=== PATIENT | female | born 1995 | race African-American/Black ===

== ENCOUNTER 2020-08-22 20:04 | Observation (INO) | payer OTHER, SELFPAY ==
[2020-08-22] VITALS (14 sets, daily range): BP systolic 124–153; BP diastolic 78–109; PULSE 74–102; RESP 16–62; TEMP 36.4; O2SAT 100
--- NOTE | ~2020-08-22 | US_ITS ---
EXAMINATION: US pelvic complete DATE: 08/23/2020 13:06 INDICATION: Suprapubic pain. TECHNIQUE: Multiple transabdominal sonographic images of the pelvis were obtained. COMPARISON: None. FINDINGS: The uterus measures 9.4 x 5.6 x 4.9 cm. There is no free fluid in the pelvis. The endometrial complex measures 12 mm in thickness. The right ovary measures 2.8 x 2.8 x 2.7 cm. The left ovary measures 2. 1 x 1.9 x 2.4 cm. There is normal vascular flow in the ovaries. IMPRESSION: 1. Normal pelvis. Reviewed, dictated and finalized at location [facility]. GY ADVISOR IMPRESSION: 1. Normal pelvis.
[2020-08-22 20:49] LABS: Basophils Percent Auto 0.4 % (0.2-1.2); Eosinophils Absolute Auto 0.1 K/mm3 (0-0.3); Eosinophils Percent Auto 1.5 % (0-4.4); Hematocrit 39.3 % (37.0-47.0); Hemoglobin 12.7 g/dL (12.0-15.0); Immature Granulocyte Absolute 0.01 K/mm3 (0.00-0.031); Immature Granulocyte Percent A 0.2 % (0-0.5); Lymphocytes Absolute Auto 2.28 K/mm3 (0.9-3.2); Lymphocytes Percent Auto 41.6 % (18.3-44.2); Mean Corpuscular HGB Conc 32.3 g/dl (32-36); Mean Corpuscular Volume 83.4 fl (80-100); Mean Platelet Volume 10.7 fl (7.4-10.4); Monocytes Absolute Auto 0.3 K/mm3 (0.1-0.6); Monocytes Percent Auto 5.5 % (2.6-8.5); Neutrophils Absolute Auto 2.8 K/mm3 (1.3-6.7); Neutrophils Percent Auto 50.8 % (45.5-73.1); Platelet Count Result 195 k/mm3 (150-375); Red Blood Count 4.71 M/mm3 (4.2-5.4); Red Cell Distribution Width 13.2 % (11.5-14.5); White Blood Count 5.5 K/mm3 (4.5-10.0)
[2020-08-22] MEDS: ONDANSETRON INJ 4 MG/2 ML VIAL IV PUSH (20:54)
[2020-08-22] MEDS: LORazepam INJ (*CRX) 2 MG/ML VIAL 1 MG IV PUSH ×2 (20:54→22:54)
[2020-08-22] MEDS: levETIRAcetam 1000MG/NACL100ML 1,000 MG/100 ML BAG 400 MG IVPB (20:54)
[2020-08-22 20:55] LABS: Add Urine Microscopic? NO; Appearance Urine Clear (Clear); Bacteria Urine Trace /hpf; Bilirubin Urine Negative (Negative); Blood Urine Negative (Negative); Color Urine Yellow (Yellow); Glucose Urine UA Negative (Negative); Ketones Urine Negative (Negative); Leukocyte Esterase Ur Negative LEU/UL (Negative); Mucus Urine Rare /lpf; Nitrate Urine Negative (Negative); Protein Urine Negative (Negative); RBC Urine 0-2 /hpf (0-2); Specific Grav Ur 1.019 (1.001-1.035); Squamous Epithelial Cell Urine Many /hpf (Few); Urobilinogen Urine Negative mg/dL (<2.0); WBC Urine 0-3 /hpf
[2020-08-22 21:01] LABS: Alanine Aminotransferase 13 U/L (4-35); Albumin Level 4.5 g/dL (3.5-5.1); Alkaline Phosphatase 100 U/L (38-126); Anion Gap 6 mmol/L (8-16); Aspartate Amino Transferase 26 U/L (14-36); Bilirubin,Total 0.5 mg/dL (0.2-1.3); Blood Urea Nitrogen 9 mg/dL (7-17); Calcium 9.2 mg/dL (8.4-10.2); Carbon Dioxide 25 mmol/L (22-30); Chloride 107 mmol/L (98-107); Estimated CRCL calculation 123 ml/min; Estimated Glomerular Filt Rate > 60; Glucose 95 mg/dL (65-105); Lipase 25 U/L (23-300); Potassium 4.1 mmol/L (3.4-5.0); Sodium 138 mmol/L (137-145)
[2020-08-22] MEDS: SODIUM CHLORIDE 0.9% IV 1,000 ML 999 ML IV CONT (21:13)
[2020-08-22] MEDS: LORazepam INJ (*CRX) 2 MG/ML VIAL (21:34)
--- NOTE | 2020-08-22 21:34 | PC.NURSE ---
pt appeared to be seizing again provider aware order for ativan 1mg ivp x2 pt holding own airway, suction used and remained at bedside
--- NOTE | 2020-08-22 22:11 | ED.GENADULT ---
HPI - General Adult General Chief complaint: Abdominal Pain Stated complaint: ABD/BACK PAIN Time Seen by Provider: 08/22/20 20:23 History of Present Illness HPI narrative: Patient is a 24-year-old female who presents ER with seizure activity. Patient has history of seizure disorder and sees a neurologist in [place]. Patient has not taken her antiepileptics for 1 week as she has currently been in the process of moving and just found them this evening. Additionally patient works nights in her sleep schedule has been off. Patient seized in route and had active seizure here. Seizure activity has patient having full body twitching and jerking, she also blows bubbles with spit. Does not seem to respond to sternal rub. Related Data Home Medications Medication Instructions Recorded Confirmed levetiracetam 1,000 mg PO BID 08/23/20 08/23/20 Allergies Allergy/AdvReac Type Severity Reaction Status Date / Time acetaminophen [From Tylenol] Allergy Unknown Verified 08/22/20 21:35 Review of Systems Review of Systems: ROS unobtainable: Yes unobtainable due to medical condition PMFSH Past Medical History Medical History Seizures Surgical History Surgical History No pertinent past surgical history Family History Family History Other Unknown family medical history Social History Social History Years smoked: 6 Smoking status: Current every day smoker Tobacco type: cigarettes Alcohol intake: current Substance use: current Substance use type: marijuana Gender identity (if verbalized by the patient): Female Spiritual care concerns: No Exam Narrative: Exam Narrative: GENERAL: Postictal, well-nourished, and in no acute distress. HEAD: Normocephalic, atraumatic. EYES: PERRL and EOMI. ENT: Mucous membranes moist. CHEST: Clear to auscultation. No respiratory distress. HEART: Regular rate and rhythm. Normal peripheral pulses. ABDOMEN: Soft, nontender, nondistended. EXTREMITIES: Normal range of motion. No edema. SKIN: Warm, dry, no rash. NEURO: No focal deficits. Alert and oriented x3. Course Reevaluation(s) Reevaluation #1: Patient initially loaded with 1 g of Keppra given Ativan 1 mg. After second seizure she was given another milligram of Ativan. Patient with recurrent episodes of seizure activity unresponsive to ammonia inhalants. Discussed case with Dr. Goel. Recommends giving patient additional 500 mg of Keppra and admitting for observation. Date: 08/22/20 Time: 22:37 Vital Signs Vital signs: Vital Signs Temperature 97.6 F 08/22/20 20:08 Pulse Rate 94 08/22/20 20:08 Respiratory Rate 16 08/22/20 20:08 Blood Pressure 146/104 H 08/22/20 20:08 Pulse Oximetry 100 08/22/20 20:08 Temperature 96.8 F L 08/24/20 00:00 Pulse Rate 73 08/24/20 00:00 Respiratory Rate 16 08/24/20 00:00 Blood Pressure 130/56 L 08/24/20 00:00 Pulse Oximetry 100 08/24/20 00:00 Medical Decision Making Vital Signs Vital Signs: Vital Signs Temperature 97.6 F 08/22/20 20:08 Pulse Rate 94 08/22/20 20:08 Respiratory Rate 16 08/22/20 20:08 Blood Pressure 146/104 H 08/22/20 20:08 Pulse Oximetry 100 08/22/20 20:08 Temperature 96.8 F L 08/24/20 00:00 Pulse Rate 73 08/24/20 00:00 Respiratory Rate 16 08/24/20 00:00 Blood Pressure 130/56 L 08/24/20 00:00 Pulse Oximetry 100 08/24/20 00:00 Lab Data Result diagrams: 08/24/20 05:14 08/23/20 09:15 Labs: Lab Results 08/22/20 08/22/20 08/22/20 Range/Units 20:40 20:40 20:43 WBC 5.5 (4.5-10.0) K/mm3 RBC 4.71 (4.2-5.4) M/mm3 Hgb 12.7 (12.0-15.0) g/dL Hct 39.3 (37.0-47.0) % MCV 83.4 (80-100) fl MCH 27.0 (26-34) pg MCHC 32.3 (32-36) g/dl RDW
[2020-08-22] MEDS: levETIRAcetam 500MG/NACL 100ML 500 MG/100 ML BAG 400 MG IVPB (22:54)
--- NOTE | 2020-08-22 22:57 | PC.NURSE ---
noted to be seizing again, urinated ion self received another ativan 1mg ivp, another keppra 500 mg provider aware
[2020-08-23] VITALS (8 sets, daily range): BP systolic 112–138; BP diastolic 58–86; PULSE 63–84; RESP 16–20; TEMP 35.9–36.7; O2SAT 96–100; BMI 41.1
--- NOTE | 2020-08-23 00:57 | ADMGEN ---
This patient, Malachi Garcia, was admitted to Medical Room [facility] @0045. Patient/family oriented to hospital policies and general routines including ID bracelet, bed and alarms, visiting hours, pain management, procedures, bathroom and other care routines, personal items, smoking policy, room service/diet, and visiting hours. Information on how to activate the Rapid Response Team has been discussed. Patient/Family are encouraged to report perceived risks to care and to ask questions if they do not understand what they are told or what they should do.
--- NOTE | 2020-08-23 04:23 | PC.NURSE ---
Patient is requesting Ativan IV scheduled. She said when she is hospitalized she gets Ativan scheduled to help her sleep. Day Typist PROJECT LEAD went in to do her vitals and had to shake patient to get her to wake up. Pt refused to stand to do Orthostatic vital signs. No seizure activity.
[2020-08-23] MEDS: levETIRAcetam 500 MG TABLET 1000 MG PO ×2 (08:30→18:21)
[2020-08-23] MEDS: IBUPROFEN 400 MG TABLET PO (08:32)
[2020-08-23 09:44] LABS: Hematocrit 35.1 % (37.0-47.0); Hemoglobin 11.4 g/dL (12.0-15.0); Mean Corpuscular HGB Conc 32.5 g/dl (32-36); Mean Corpuscular Hemoglobin 27.3 pg (26-34); Mean Platelet Volume 11.1 fl (7.4-10.4); Platelet Count Result 176 k/mm3 (150-375); Red Blood Count 4.18 M/mm3 (4.2-5.4); Red Cell Distribution Width 13.4 % (11.5-14.5); White Blood Count 5.7 K/mm3 (4.5-10.0)
--- NOTE | 2020-08-23 11:31 | PM.IMHP ---
H&P: HPI History of Present Illness Date/Time: 08/23/20 11:31 Chief Complaint: Seizures, abdominal pain Narrative: Malachi Garcia is a 24 year old female with a history of cardiac pacemaker at age of 17, also history of seizure for which patient taking Keppra apparently patient is in process of moving and was not taking her Keppra as given, patient also complains of lower abdominal pain going on for about a week now, patient denies any hematuria, any discharge, and no risk of STD, patient states pain was getting progressively worse on route to the emergency department she had several episodes of seizures, patient was started on IV Keppra emergency department and we have switched over to oral Keppra, and be seen by Dr. Goel and further recommendation to follow. In terms of patient abdominal pain urine is essentially normal and patient has no complaint of dysuria, denies any nausea or vomiting fever or chills, currently eating her breakfast, To further evaluate patient abdominal pain we have ordered lower abdominal ultrasound, will follow-up further recommendation to follow. Review of Systems Review of Systems: All systems reviewed & are unremarkable except as noted in HPI and below PMFSH Past Medical History Medical History (Updated 08/23/20 @ 11:36 by Jarett Hollins MD) Seizures Surgical History Surgical History (Updated 08/22/20 @ 22:11 by Oleksandr Coreas MD) No pertinent past surgical history Family History Family History (Updated 08/23/20 @ 01:51 by Lindsay Hernandez RN) Other Unknown family medical history Social History Social History (Updated 08/22/20 @ 22:11 by Oleksandr Coreas MD) Years smoked: 6 Smoking status: Current every day smoker Tobacco type: cigarettes Alcohol intake: current Substance use: current Substance use type: marijuana Gender identity (if verbalized by the patient): Female Spiritual care concerns: No Meds Home Medications and Allergies Home Medications Medication Instructions Recorded Confirmed Type levetiracetam 1,000 mg PO BID 08/23/20 08/23/20 History Allergies Allergy/AdvReac Type Severity Reaction Status Date / Time acetaminophen [From Tylenol] Allergy Unknown Verified 08/22/20 21:35 Vital Signs Vital Signs - 24 hr 08/22/20 20:08 08/22/20 21:33 08/22/20 21:45 Temperature 97.6 F Pulse Rate 94 90 92 Respiratory Rate 16 28 H 62 H Blood Pressure 146/104 H 143/109 H Pulse Oximetry 100 100 100 08/22/20 21:46 08/22/20 22:00 08/22/20 22:01 Temperature Pulse Rate 88 81 87 Respiratory Rate 19 23 H 23 H Blood Pressure 139/90 142/95 H Pulse Oximetry 100 100 100 08/22/20 22:02 08/22/20 22:15 08/22/20 22:16 Temperature Pulse Rate 82 84 90 Respiratory Rate 20 26 H 23 H Blood Pressure 141/91 H Pulse Oximetry 100 100 100 08/22/20 22:30 08/22/20 22:31 08/22/20 22:45 Temperature Pulse Rate 101 H 102 H 88 Respiratory Rate 24 H 30 H 25 H Blood Pressure 153/102 H Pulse Oximetry 08/22/20 22:46 08/22/20 23:40 08/23/20 00:00 Temperature 97.6 F Pulse Rate 80 74 84 Respiratory Rate 19 16 20 Blood Pressure 145/88 H 124/78 133/85 Pulse Oximetry 100 100 08/23/20 00:36 08/23/20 01:22 08/23/20 04:00 Temperature 98.1 F 97.1 F L Pulse Rate 84 78 70 Respiratory Rate 16 18 Blood Pressure 138/86 127/71 Pulse Oximetry 100 96 08/23/20 08:00 Temperature 97.4 F L Pulse Rate 71 Respiratory Rate 18 Blood Pressure 132/74 Pulse Oximetry 100 Exam Narrative: Exam Narrative: Moderately obese Patient is comfortable, NAD HEENT: eyes are clear and none icteric LUNGS:CTA HEART: RR S1S2 ABD: Lower abdominal suprapubic pain per patient Lower extremities: no edema SKIN: nonjaundiced Neuro: grossly intact. H&P: Results Labs Labs: Short CBC 08/22/20 08/23/20 Range/Units 20:40 09:15 WBC 5.5 5.7 (4.5-10.0) K/mm3 Hgb 12.7 11.4 L (12.0-15.0) g/dL Hct 39.3 35.1 L (37.0-47.
[2020-08-23 11:59] LABS: Alanine Aminotransferase 9 U/L (4-35); Albumin Level 3.6 g/dL (3.5-5.1); Alkaline Phosphatase 82 U/L (38-126); Anion Gap 4 mmol/L (8-16); Aspartate Amino Transferase 20 U/L (14-36); Bilirubin,Total 0.3 mg/dL (0.2-1.3); Blood Urea Nitrogen 9 mg/dL (7-17); Carbon Dioxide 24 mmol/L (22-30); Chloride 111 mmol/L (98-107); Creatine Kinase 57 U/L (30-135); Estimated CRCL calculation 109 ml/min; Estimated Glomerular Filt Rate > 60; Glucose 85 mg/dL (65-105); Magnesium 1.9 mg/dL (1.6-2.3); Potassium 3.9 mmol/L (3.4-5.0); Sodium 139 mmol/L (137-145)
--- NOTE | 2020-08-23 14:30 | WPDNEURCNPN ---
Assessment and Plan Assessment and plan (1) Seizure: Code(s): R56.9 - Unspecified convulsions Status: Acute Additional Plan ongoing history of seizure disorder with noncompliance will need to continue Keppra as ordered and follow-up in the office as an outpatient Consult date: 08/23/20 Time Seen: 14:00 HPI: Malachi Garcia is a 24 year old female admitted to the hospital for the complaints of abdominal pain and seizure, has a history of cardiac pacemaker at a very young age of 17. Has been involving the moving process and also has not been taking her Keppra regularly abdominal pain was getting worse so she came to the emergency room in addition she had several bouts of seizure for which she was given IV Keppra in the emergency room . She does have every day smoking history and also using marijuana and allergic to Tylenol evaluation documented her to be afebrile with pulse 78 respirations 16 pulse ox 100 blood pressure 127/77 on room air normal CBC ,normal electrolytes, normal UA Review of Systems Review of Systems: All systems reviewed & are unremarkable except as noted in HPI and below PMFSH Past Medical History Medical History Seizures Surgical History Surgical History No pertinent past surgical history Family History Family History Other Unknown family medical history Social History Social History Years smoked: 6 Smoking status: Current every day smoker Tobacco type: cigarettes Alcohol intake: current Substance use: current Substance use type: marijuana Gender identity (if verbalized by the patient): Female Spiritual care concerns: No Meds Home Medications and Allergies Home Medications Medication Instructions Recorded Confirmed Type levetiracetam 1,000 mg PO BID 08/23/20 08/23/20 History Allergies Allergy/AdvReac Type Severity Reaction Status Date / Time acetaminophen [From Tylenol] Allergy Unknown Verified 08/22/20 21:35 Vital Signs Vital Signs - 24 hr 08/22/20 20:08 08/22/20 21:33 08/22/20 21:45 Temperature 36.4 C Pulse Rate 94 90 92 Respiratory Rate 16 28 H 62 H Blood Pressure 146/104 H 143/109 H Pulse Oximetry 100 100 100 08/22/20 21:46 08/22/20 22:00 08/22/20 22:01 Temperature Pulse Rate 88 81 87 Respiratory Rate 19 23 H 23 H Blood Pressure 139/90 142/95 H Pulse Oximetry 100 100 100 08/22/20 22:02 08/22/20 22:15 08/22/20 22:16 Temperature Pulse Rate 82 84 90 Respiratory Rate 20 26 H 23 H Blood Pressure 141/91 H Pulse Oximetry 100 100 100 08/22/20 22:30 08/22/20 22:31 08/22/20 22:45 Temperature Pulse Rate 101 H 102 H 88 Respiratory Rate 24 H 30 H 25 H Blood Pressure 153/102 H Pulse Oximetry 08/22/20 22:46 08/22/20 23:40 08/23/20 00:00 Temperature 36.4 C Pulse Rate 80 74 84 Respiratory Rate 19 16 20 Blood Pressure 145/88 H 124/78 133/85 Pulse Oximetry 100 100 08/23/20 00:36 08/23/20 01:22 08/23/20 04:00 Temperature 36.7 C 36.2 C L Pulse Rate 84 78 70 Respiratory Rate 16 18 Blood Pressure 138/86 127/71 Pulse Oximetry 100 96 08/23/20 08:00 08/23/20 12:00 Temperature 36.3 C L 36.0 C L Pulse Rate 68 78 Respiratory Rate 18 16 Blood Pressure 132/74 127/77 Pulse Oximetry 100 100 Exam Const: General: cooperative and no acute distress HENMT: Head: normocephalic Ears: hearing grossly normal bilaterally General nose exam: Normal external nose present and No nasal discharge present Eyes: General: appearance normal, both eyes and all related structures Resp: Effort & Inspection: normal respiratory effort Auscultation: clear to auscultation bilaterally Cardio: Rate: regular rate Rhythm: regular rhythm GI: Auscultation: normal bowel sounds Neuro: General: patient oriented x3 Crani
--- NOTE | 2020-08-23 18:22 | PCDIET ---
pt wanted to have keppra dose with dinner tray
[2020-08-23] MEDS: MELATONIN 5 MG TABLET PO (20:49)
[2020-08-24] VITALS: BP 130/56; PULSE 73; RESP 16; TEMP 36; O2SAT 100
--- NOTE | 2020-08-24 03:39 | PC.NURSE ---
At 0315 Pt is requesting something for anxiety. She said, When I am in the hospital I need something to help relax me, I don't like to be alone! I notified Dr. Gallo and she does not feel pt needs anxiety medicine. Pt requested to be discharged if she cant get anything for anxiety. said she will not discharge her tonight. Pt is sitting on side of bed swaying back and forth crying. Poor eye contact swaying back and forth. Pt stated, I feel a panic attack coming on! Notified Nursing supervisor byproducts Chapis Lawton RN of the situation.
--- NOTE | 2020-08-24 05:14 | PC.NURSE ---
She has took off her hospital gown and threw it on the floor. She pulled her tele stickers off and threw them on the floor. She is walking around in her room saying, I want to go home, I want to go home! Explained to her that Doctor will not discharge her now. She is very agitated.
--- NOTE | 2020-08-24 05:26 | PC.NURSE ---
Pt currently is laying on couch with eyes closed with no pillow or blanket. She is refusing to lay in her bed at this time.
[2020-08-24 05:52] LABS: Hemoglobin 12.2 g/dL (12.0-15.0); Mean Corpuscular HGB Conc 32.1 g/dl (32-36); Mean Corpuscular Hemoglobin 26.5 pg (26-34); Mean Corpuscular Volume 82.4 fl (80-100); Mean Platelet Volume 10.6 fl (7.4-10.4); Platelet Count Result 193 k/mm3 (150-375); Red Blood Count 4.61 M/mm3 (4.2-5.4); Red Cell Distribution Width 13.2 % (11.5-14.5); White Blood Count 6.2 K/mm3 (4.5-10.0)
--- NOTE | 2020-08-24 06:44 | PC.NURSE ---
Pt put emergency response officer light requesting to go outside to smoke. Explained to her we are a non-smoking facility. We can offer the nicotine patch but you can't go outside to smoke. She is angry and frustrated with being here. She wants the doctor to discharge her now. I explained to her that Dr. Gallo will not discharge her and she needs to wait for the day doctors to come in.
[2020-08-24 07:43] LABS: Alanine Aminotransferase 10 U/L (4-35); Albumin Level 4.3 g/dL (3.5-5.1); Alkaline Phosphatase 89 U/L (38-126); Anion Gap 8 mmol/L (8-16); Aspartate Amino Transferase 24 U/L (14-36); Bilirubin,Total 0.3 mg/dL (0.2-1.3); Blood Urea Nitrogen 9 mg/dL (7-17); Calcium 9.5 mg/dL (8.4-10.2); Carbon Dioxide 22 mmol/L (22-30); Chloride 108 mmol/L (98-107); Creatine Kinase 59 U/L (30-135); Estimated CRCL calculation 123 ml/min; Estimated Glomerular Filt Rate > 60; Glucose 86 mg/dL (65-105); Magnesium 1.9 mg/dL (1.6-2.3); Potassium 3.8 mmol/L (3.4-5.0); Sodium 138 mmol/L (137-145)
[2020-08-24] MEDS: levETIRAcetam 500 MG TABLET 1000 MG PO (08:12)
--- NOTE | 2020-08-24 08:17 | PM.DS ---
DS: Admitting Diagnosis Admitting Diagnosis Admitting Diagnosis: Chief Complaint: Seizures, abdominal pain DS: Discharge Diagnosis Discharge Diagnosis (1) Seizure: Code(s): R56.9 - Unspecified convulsions Status: Acute Assessment and Plan: Mlaachi Garcia is a 24 year old female with a history of cardiac pacemaker at age of 17, also history of seizure for which patient taking Keppra apparently patient is in process of moving and was not taking her Keppra as given, patient also complains of lower abdominal pain going on for about a week now, patient denies any hematuria, any discharge, and no risk of STD, patient states pain was getting progressively worse on route to the emergency department she had several episodes of seizures, patient was started on IV Keppra emergency department and we have switched over to oral Keppra, and be seen by Dr. Goel and further recommendation to follow. In terms of patient abdominal pain urine is essentially normal and patient has no complaint of dysuria, denies any nausea or vomiting fever or chills, currently eating her breakfast, To further evaluate patient abdominal pain we have ordered lower abdominal ultrasound, will follow-up further recommendation to follow. (2) Abdominal pain: Code(s): R10.9 - Unspecified abdominal pain Status: Acute Assessment and Plan: Etiology uncertain, urine is clear, denies any discharges and risk of STDs, will follow-up on lower abdominal ultrasound and and further recommendation to follow. DS: Summary Hospital Course Reason for hospitalization: Chief Complaint: Seizures, abdominal pain Narrative: Malachi Garcia is a 24 year old female with a history of cardiac pacemaker at age of 17, also history of seizure for which patient taking Keppra apparently patient is in process of moving and was not taking her Keppra as given, patient also complains of lower abdominal pain going on for about a week now, patient denies any hematuria, any discharge, and no risk of STD, patient states pain was getting progressively worse on route to the emergency department she had several episodes of seizures, patient was started on IV Keppra emergency department and we have switched over to oral Keppra, and be seen by Dr. Goel and further recommendation to follow. In terms of patient abdominal pain urine is essentially normal and patient has no complaint of dysuria, denies any nausea or vomiting fever or chills, currently eating her breakfast, To further evaluate patient abdominal pain we have ordered lower abdominal ultrasound, will follow-up further recommendation to follow. Hospital Course: Malachi Garcia is a 24 year old female with a history of cardiac pacemaker at age of 17, also history of seizure for which patient taking Keppra apparently patient is in process of moving and was not taking her Keppra as given, patient also complains of lower abdominal pain going on for about a week now, patient denies any hematuria, any discharge, and no risk of STD, patient states pain was getting progressively worse on route to the emergency department she had several episodes of seizures, patient was started on IV Keppra emergency department and we have switched over to oral Keppra, and be seen by Dr. Goel and further recommendation to follow. In terms of patient abdominal pain urine is essentially normal and patient has no complaint of dysuria, denies any nausea or vomiting fever or chills, currently eating her breakfast, To further evaluate patient abdominal pain we have ordered lower abdominal ultrasound, will follow-up further recommendation to follow. Patient with low abdominal pain, US of abdomen was normal and her pain has resolved, patient was started on Keppara IV, remains clinically stable, will discharge patient home today, patient to follow up with her primary care provider as soon as possible, patient is instructed not to drive. Status at Discharge Functional status at
== END 2020-08-24 08:45 | disposition home or self-care (01) ==
LOC: ANHED 20:49 → ANH2MED 08-23 01:50
PROVIDERS: Admitting Provider Internal Medicine; Emergency Provider Emergency Medicine; PCP Internal Medicine Infectious Disease; Visit Provider Family Medicine
DX: R56.9 Unspecified convulsions (principal); R10.9 Unspecified abdominal pain; F17.210 Nicotine dependence, cigarettes, uncomplicated; F12.90 Cannabis use, unspecified, uncomplicated; Z95.0 Presence of cardiac pacemaker
CPT/HCPCS: 36415; 76856; 80053; 81003; 81025; 82550; 83690; 83735; 85025; 85027; 96365; 96366; 96375; 96376; 97161; 99285; A9270; G0378; G0379; J1953; J2060; J2405; J7030

== ENCOUNTER 2021-07-13 11:14 | Emergency (ER) | payer OTHER, SELFPAY ==
--- NOTE | ~2021-07-13 | CT_ITS ---
EXAMINATION: CT abdomen pelvis w con DATE: 07/13/2021 16:30 INDICATION: Lower abdominal pain, right lower quadrant TECHNIQUE: Computed tomography (CT) of the abdomen and pelvis was performed with 100 cc Omnipaque 350 intravenous contrast. Automated exposure control and iterative reconstruction technique were employe d. Exam dose: 1180.48 mGy-cm total exam DLP. COMPARISON: August 23, 2020 pelvic ultrasound FINDINGS: The lung bases are clear. Normal heart size. Right ventricular pacemaker lead. No pericardi al or pleural effusion. The liver, spleen, pancreas, adrenal glands and kidneys are unremarkable except for a small several m illimeter nonobstructing lower pole right renal calculus. No bile duct or pancreatic duct dilatation. Normal caliber of the abdominal aorta. No intraperitoneal or retroperitoneal or pelvic mass lesion or adenopathy or ascites. 1.9 cm peripheral enhancement right ovarian corpus luteum cyst. The uterus and adnexal areas and urin jaison bladder are unremarkable otherwise. Normal appendix. There is no evidence of appendicitis. No bowel obstruction, bowel wall thickening, p neumatosis or intraperitoneal free air is detected. Included skeletal structures are unremarkable. IMPRESSION: Enhancing 1.9 cm right ovarian corpus luteum cyst Normal appendix Reviewed, dictated and finalized at [facility]. Reviewed, dictated and finalized at location [facility]. WARE PROJECT MANAGER
[2021-07-13 11:17] VITALS: BP 149/89; PULSE 84; RESP 16; TEMP 37.2; O2SAT 100
[2021-07-13 14:33] VITALS: BP 152/107; PULSE 80; RESP 18; O2SAT 100
[2021-07-13 15:11] LABS: Add Urine Microscopic? NO; Appearance Urine Clear (Clear); Bilirubin Urine Negative (Negative); Blood Urine Negative (Negative); Color Urine Straw (Yellow); Glucose Urine UA Negative (Negative); Ketones Urine Negative (Negative); Leukocyte Esterase Ur Negative LEU/UL (Negative); Nitrate Urine Negative (Negative); Protein Urine Negative (Negative); Specific Grav Ur 1.011 (1.001-1.035); Urobilinogen Urine Negative mg/dL (<2.0)
--- NOTE | 2021-07-13 15:17 | PC.NURSE ---
Phlebotomy called to attempt to obtain blood at this time after multiple nurses attempted
--- NOTE | 2021-07-13 15:18 | ED.ABDPAIN ---
HPI - Abdominal Pain General Chief Complaint: Abdominal Pain Stated Complaint: abd pain Time Seen by Provider: 07/13/21 14:33 History of Present Illness HPI narrative: 25-year-old female presenting to the emergency department for evaluation of lower abdominal pain with associated constipation. Patient states he has had approximately 2 weeks of constipation where she has very small pebble bowel movements. Patient states she has been eating normally and drinking fluids. Patient states she did attempt to take some medication for constipation with no change. Patient does report a history of fibroids. Patient denies any other previous abdominal surgeries. Patient states she has had issue with constipation previously. Patient does have a pacemaker. Patient denies any associated chest pain or shortness of breath today. Patient denies any vaginal bleeding or vaginal discharge. Patient denies any blood in her stool. Related Data Home Medications Medication Instructions Recorded Confirmed levetiracetam 1,000 mg PO BID 08/23/20 08/23/20 Allergies Allergy/AdvReac Type Severity Reaction Status Date / Time acetaminophen [From Tylenol] Allergy Unknown Verified 08/22/20 21:35 Review of Systems Review of Systems: CONSTITUTIONAL: Denies fever, chills, or sweats. EYES: Denies visual changes, redness, or discharge. ENT: Denies rhinorrhea, congestion, sore throat, or otalgia. CARDIOVASCULAR: Denies chest pain, palpitations, or edema. RESPIRATORY: Denies cough or dyspnea. GASTROINTESTINAL: Denies any nausea but does have decreased appetite and with constipation with associated right lower quadrant pain GENITOURINARY: Denies dysuria or hematuria. SKIN: Denies rash or itching. MUSCULOSKELETAL: Denies back pain, joint pain, or myalgia. NEUROLOGIC: Denies headache, numbness, or weakness. PSYCHIATRIC: Denies anxiety or depression. [facility] Past Medical History Medical History Seizures Surgical History Surgical History No pertinent past surgical history Family History Family History Other Unknown family medical history Social History Social History Years smoked: 6 Smoking status: Current every day smoker Tobacco type: cigarettes Alcohol intake: current Substance use: current Substance use type: marijuana Gender identity (if verbalized by the patient): Female Spiritual care concerns: No Exam Narrative: APPEARANCE: Well appearing, no pain in distress, well-nourished. Head normocephalic atraumatic. EYES: PERRLA/EOMI, conjunctivae very clear. NECK: Supple. No adenopathy, no masses. RESPIRATORY: Airway patent, respirations nonlabored. Clear to auscultation bilaterally, no rales, rhonchi, wheezing. CARDIOVASCULAR: Regular rate and rhythm without murmurs rubs or gallops. ABDOMINAL: Normal bowel sounds, some right lower quadrant tenderness to palpation. No peritonitis MUSCULOSKELETAl: Moves all extremities. Strenght/ROM intact, No edema, No calf tenderness. NEURO: Alert. Cranial nerves II through XII intact. Good gait. Good coordination SKIN:: Warm, dry. Normal Color PSYCHIATRIC: Normal affect/mood. Course Course Emergency Course: Patient was updated on the plan for imaging and labs. Patient states she does feel improved with treatment. Reevaluation(s) Reevaluation #1: Patient was updated on the results of her work-up. Patient was also informed on the plan for treatment at home including MiraLAX or magnesium citrate. All questions and concerns were addressed and patient was comfortable with the plan for discharge and close follow-up. Patient was also educated on reasons to return to the emergency department. Vital Signs Vital signs: Vital Signs Temperature 99.0 F 07/13/21 11:17 Pulse Rate 84 07/13/21 11:17
[2021-07-13] MEDS: fentaNYL CITRATE INJ (*CRX) 100 MCG/2 ML VIAL 50 MCG IV PUSH (15:23)
[2021-07-13 15:24] VITALS: BP 149/94; PULSE 69; RESP 18; O2SAT 99
[2021-07-13 15:43] LABS: Basophils Percent Auto 0.3 % (0.2-1.2); Eosinophils Absolute Auto 0.1 K/mm3 (0-0.3); Eosinophils Percent Auto 0.8 % (0-4.4); Hematocrit 39.7 % (37.0-47.0); Hemoglobin 12.9 g/dL (12.0-15.0); Immature Granulocyte Absolute 0.02 K/mm3 (0.00-0.031); Immature Granulocyte Percent A 0.3 % (0-0.5); Lymphocytes Absolute Auto 2.46 K/mm3 (0.9-3.2); Lymphocytes Percent Auto 38.5 % (18.3-44.2); Mean Corpuscular HGB Conc 32.5 g/dl (32-36); Mean Corpuscular Hemoglobin 26.8 pg (26-34); Mean Corpuscular Volume 82.4 fl (80-100); Monocytes Absolute Auto 0.4 K/mm3 (0.1-0.6); Monocytes Percent Auto 5.6 % (2.6-8.5); Neutrophils Absolute Auto 3.5 K/mm3 (1.3-6.7); Neutrophils Percent Auto 54.5 % (45.5-73.1); Platelet Count Result 186 k/mm3 (150-375); Red Blood Count 4.82 M/mm3 (4.2-5.4); Red Cell Distribution Width 13.8 % (11.5-14.5); White Blood Count 6.4 K/mm3 (4.5-10.0)
[2021-07-13 15:54] LABS: Alanine Aminotransferase 13 U/L (4-35); Albumin Level 4.6 g/dL (3.5-5.1); Alkaline Phosphatase 97 U/L (38-126); Anion Gap 6 mmol/L (8-16); Aspartate Amino Transferase 21 U/L (14-36); Bilirubin,Total 0.4 mg/dL (0.2-1.3); Blood Urea Nitrogen 8 mg/dL (7-17); Calcium 9.4 mg/dL (8.4-10.2); Carbon Dioxide 23 mmol/L (22-30); Chloride 102 mmol/L (98-107); Estimated CRCL calculation 121 ml/min; Estimated Glomerular Filt Rate > 60; Glucose 96 mg/dL (65-110); Potassium 3.8 mmol/L (3.4-5.0); Sodium 131 mmol/L (137-145)
== END 2021-07-13 17:21 | disposition home or self-care (01) ==
PROVIDERS: Emergency Provider Emergency Medicine; PCP Internal Medicine Infectious Disease
DX: K59.00 Constipation, unspecified (principal); R10.31 Right lower quadrant pain; F17.210 Nicotine dependence, cigarettes, uncomplicated; N83.11 Corpus luteum cyst of right ovary
CPT/HCPCS: 36415; 74177; 80053; 81003; 81025; 85025; 96374; 99284; J3010; Q9967

== ENCOUNTER 2021-07-19 10:00 | Emergency (ER) | payer OTHER, SELFPAY ==
--- NOTE | 2021-07-19 10:03 | ECG_ITS ---
Measurements Intervals [place] Rate: 83 P: 67 NH: 207 QRS: 66 QRSD: 89 T: -25 QT: 369 QTc: 435 Interpretive Statements SINUS RHYTHM T WAVE ABNORMALITY IN ANT/INF LEADS- CONSIDER ISCHEMIA ABNORMAL ECG Electronically Signed On 07-19-2021 10:46:04 [employer] by Herman Wright D.O.
[2021-07-19 10:32] LABS: Basophils Percent Auto 0.5 % (0.2-1.2); Eosinophils Absolute Auto 0.1 K/mm3 (0-0.3); Eosinophils Percent Auto 2.2 % (0-4.4); Hematocrit 36.7 % (37.0-47.0); Hemoglobin 11.9 g/dL (12.0-15.0); Immature Granulocyte Absolute 0.01 K/mm3 (0.00-0.031); Immature Granulocyte Percent A 0.2 % (0-0.5); Lymphocytes Absolute Auto 2.85 K/mm3 (0.9-3.2); Lymphocytes Percent Auto 47.5 % (18.3-44.2); Mean Corpuscular HGB Conc 32.4 g/dl (32-36); Mean Corpuscular Hemoglobin 27.3 pg (26-34); Mean Corpuscular Volume 84.2 fl (80-100); Mean Platelet Volume 10.7 fl (7.4-10.4); Monocytes Absolute Auto 0.4 K/mm3 (0.1-0.6); Monocytes Percent Auto 6.2 % (2.6-8.5); Neutrophils Absolute Auto 2.6 K/mm3 (1.3-6.7); Neutrophils Percent Auto 43.4 % (45.5-73.1); Platelet Count Result 194 k/mm3 (150-375); Red Blood Count 4.36 M/mm3 (4.2-5.4); Red Cell Distribution Width 14.1 % (11.5-14.5)
[2021-07-19 10:41] LABS: Alanine Aminotransferase 15 U/L (4-35); Albumin Level 4.2 g/dL (3.5-5.1); Alkaline Phosphatase 80 U/L (38-126); Anion Gap 9 mmol/L (8-16); Aspartate Amino Transferase 23 U/L (14-36); Bilirubin,Total 0.3 mg/dL (0.2-1.3); Blood Urea Nitrogen 10 mg/dL (7-17); Carbon Dioxide 23 mmol/L (22-30); Chloride 107 mmol/L (98-107); Estimated Glomerular Filt Rate > 60; Glucose 100 mg/dL (65-110); Lipase 30 U/L (23-300); Potassium 3.7 mmol/L (3.4-5.0); Sodium 139 mmol/L (137-145)
[2021-07-19 10:45] VITALS: BP 131/93; PULSE 82; RESP 17; TEMP 37.1; O2SAT 99
[2021-07-19 10:45] LABS: INR 0.9; Prothrombin Time 12.3 Seconds (11.1-14.7)
--- NOTE | 2021-07-19 10:51 | PC.NURSE ---
Pt came to nurses desk in triage and stated that she does not want to wait to be seen. States she knows she has COVID because her fiance is positive, but needs to be swabbed to prove to her work. Pt reports she will try to get testing elsewhere. Pt encouraged to stay but again states that she does not want to wait. Pt ambulatory when leaving in [facility].
[2021-07-19 10:53] LABS: Troponin I < 0.012 ng/mL (0.000-0.034)
== END 2021-07-19 10:51 | disposition left against medical advice (07) ==
PROVIDERS: Emergency Provider Emergency Medicine; PCP Internal Medicine Infectious Disease
DX: R05.9 Cough, unspecified (principal)
CPT/HCPCS: 36415; 80053; 83690; 84484; 85025; 85610; 85730; 93005; 99199

== ENCOUNTER 2022-10-19 17:24 | Emergency (ER) | payer OTHER, SELFPAY ==
[2022-10-19] VITALS (10 sets, daily range): BP systolic 121–134; BP diastolic 74–92; PULSE 69–94; RESP 12–26; O2SAT 100
--- NOTE | ~2022-10-19 | CT_ITS ---
EXAMINATION: CT brain wo con DATE: 10/19/2022 19:31 INDICATION: seizure . TECHNIQUE: Computed tomography (CT) of the head was performed without intravenous contrast. The mA wa s adjusted according to patient size. Iterative reconstruction technique was employed. The dose-lengt h product was 681.00 mGy-cm. COMPARISON: None. FINDINGS: No acute intracranial hemorrhage or extra-axial fluid collection. No hydrocephalus, mass, or herniation. No acute ischemic infarct. Unremarkable dural venous sinus attenuation. No acute osseous abnormality. Retention cyst or polyp in the right sphenoid sinus, the remaining aerated spaces are clear. IMPRESSION: No acute intracranial process. Reviewed, dictated and finalized at location K.
--- NOTE | 2022-10-19 17:36 | ECG_ITS ---
Measurements Intervals [place] Rate: 87 P: 62 CT: 223 QRS: 65 QRSD: 80 T: -27 QT: 347 QTc: 419 Interpretive Statements SINUS RHYTHM WITH FIRST DEGREE AV BLOCK NONSPECIFIC T-WAVE ABNORMALITY INFERIOR T-WAVE ABNORMALITY, CONSIDER ISCHEMIA BORDERLINE ST ELEVATION LATERALLY ABNORMAL ECG Electronically Signed On 10-20-2022 13:45:55 CDT by Chavez Smith M.D.
--- NOTE | 2022-10-19 17:37 | ED.SEIZURE ---
HPI - Seizure General Chief Complaint: Seizure <Priscilla Blunt MD - Last Filed: 10/20/22 09:37> Stated Complaint: SZ <Priscilla Blunt MD - Last Filed: 10/20/22 09:37> Time Seen by Provider: 10/19/22 17:28 <Priscilla Blunt MD - Last Filed: 10/20/22 09:37> Source: patient, EMS and RN notes reviewed <Priscilla Blunt MD - Last Filed: 10/20/22 09:37> Mode of arrival: EMS <Priscilla Blunt MD - Last Filed: 10/20/22 09:37> Limitations: no limitations <Priscilla Blunt MD - Last Filed: 10/20/22 09:37> History of Present Illness HPI Narrative: THis is a 26 year old female with history of epilepsy who presents for evaluation of seizures . Patient states she works at [employer] and it was extremely hot. She states she told coworkers that she was extremely hot, and it triggers her seizures. She reports she was having diplopia and this is sign of impending seizure. She sat herself on floor of an office and she was witnessed to have had seizure. EMS states she had 2 at her facility and eMS witnessed a seizure. EMS gave patient 5 mg IV P of versed. Patient is oriented x 3. She still feels off and she may have another seizure. She has headache and weakness now, but this is normal for here after having seizure. She takes keppra 1000 mg BID and she denies missing any doses. Her last seizure for last month. She felt fine prior to her seizure. <Priscilla Blunt MD - Last Filed: 10/20/22 09:37> Seizure History: Yes <Priscilla Blunt MD - Last Filed: 10/20/22 09:37> Related Data Home Medications: Home Medications Medication Instructions Recorded Confirmed levetiracetam 1,000 mg tablet 1,000 mg PO BID 08/23/20 08/23/20 <Priscilla Blunt MD - Last Filed: 10/20/22 09:37> Allergies/Adverse Reactions: Allergies Allergy/AdvReac Type Severity Reaction Status Date / Time acetaminophen [From Tylenol] Allergy Unknown Verified 08/22/20 21:35 <Priscilla Blunt MD - Last Filed: 10/20/22 09:37> Review of Systems Constitutional: Constitutional: Denies weakness <Priscilla Blunt MD - Last Filed: 10/20/22 09:37> Cardiovascular: Cardiovascular: Denies syncope, Denies rapid heart rate, Denies irregular heart rhythm, Denies leg edema and Denies dyspnea <Priscilla Blunt MD - Last Filed: 10/20/22 09:37> Respiratory: Respiratory: Denies chest congestion, Denies hemoptysis, Denies excessive phlegm production and Denies dyspnea <Priscilla Blunt MD - Last Filed: 10/20/22 09:37> Gastrointestinal: Gastrointestinal: Denies abdominal pain, Denies hematochezia, Denies diarrhea and Denies vomiting <Priscilla Blunt MD - Last Filed: 10/20/22 09:37> Genitourinary: Genitourinary: Denies hematuria and Denies dysuria <Priscilla Blunt MD - Last Filed: 10/20/22 09:37> Musculoskeletal: Musculoskeletal: Denies joint swelling, Denies loss of height and Reports muscle weakness <Priscilla Blunt MD - Last Filed: 10/20/22 09:37> Neurologic: Denies syncope, Reports headache(s), Denies focal weakness and Denies weakness <Priscilla Blunt MD - Last Filed: 10/20/22 09:37> [facility] Past Medical History Medical History: Medical History Seizures <Priscilla Blunt MD - Last Filed: 10/20/22 09:37> Surgical History Surgical History: Surgical History No pertinent past surgical history <Priscilla Blunt MD - Last Filed: 10/20/22 09:37> Family History Family History: Family History Other Unknown family medical history <Priscilla Blunt MD - Last Filed: 10/20/22 09:37> Social History Social History: Social History Years smoked: 6 Smoking status: Current every day smoker Tobacco type: cigarettes Alcohol intake: current Substance u
[2022-10-19] MEDS: SODIUM CHLORIDE 0.9% IV 1,000 ML 999 ML IV CONT (17:50)
[2022-10-19] MEDS: ONDANSETRON INJ 4 MG/2 ML VIAL IV PUSH (18:39)
[2022-10-19] MEDS: LORazepam INJ (*CRX) 2 MG/ML VIAL IV PUSH (18:39)
--- NOTE | 2022-10-19 19:00 | PC.NURSE ---
Assumed care of pt. at this time. Report from JOSE D Kumar
[2022-10-19 20:41] LABS: SPREG INTERNAL CONTROL Positive; Serum Qual hCG Negative
[2022-10-19 20:43] LABS: Alanine Aminotransferase 11 U/L (6-35); Albumin Level 3.9 g/dL (3.5-5.1); Alkaline Phosphatase 96 U/L (38-126); Anion Gap 10 mmol/L (8-16); Aspartate Amino Transferase 24 U/L (14-36); Bilirubin,Total 0.7 mg/dL (0.2-1.3); Blood Urea Nitrogen 9 mg/dL (7-17); Calcium 8.6 mg/dL (8.4-10.2); Carbon Dioxide 15 mmol/L (22-30); Chloride 110 mmol/L (98-107); Estimated CRCL calculation 119 ml/min; Estimated Glomerular Filt Rate > 60; Glucose 82 mg/dL (65-110); Potassium 3.6 mmol/L (3.4-5.0); Sodium 135 mmol/L (137-145)
[2022-10-19] MEDS: SODIUM CHLORIDE 0.9% IV 2,000 ML 999 ML IV CONT (21:10)
[2022-10-19 21:15] LABS: Basophils Percent Auto 0.3 % (0.2-1.2); Eosinophils Percent Auto 0.3 % (0-4.4); Hematocrit 37.6 % (37.0-47.0); Immature Granulocyte Absolute 0.01 K/mm3 (0.00-0.031); Immature Granulocyte Percent A 0.1 % (0-0.5); Lymphocytes Absolute Auto 2.36 K/mm3 (0.9-3.2); Lymphocytes Percent Auto 32.7 % (18.3-44.2); Mean Corpuscular HGB Conc 31.9 g/dl (32-36); Mean Corpuscular Hemoglobin 26.5 pg (26-34); Mean Platelet Volume 10.9 fl (7.4-10.4); Monocytes Absolute Auto 0.3 K/mm3 (0.1-0.6); Monocytes Percent Auto 4.7 % (2.6-8.5); Neutrophils Absolute Auto 4.5 K/mm3 (1.3-6.7); Neutrophils Percent Auto 61.9 % (45.5-73.1); Platelet Count Result 180 k/mm3 (150-375); Red Blood Count 4.53 M/mm3 (4.2-5.4); Red Cell Distribution Width 13.7 % (11.5-14.5); White Blood Count 7.2 K/mm3 (4.5-10.0)
[2022-10-22 15:17] LABS: Levetiracetam Keppra <2.0 mcg/mL (6.0-46.0)
== END 2022-10-19 22:00 | disposition left against medical advice (07) ==
PROVIDERS: General Practice; Emergency Provider Emergency Medicine; PCP Internal Medicine Infectious Disease
DX: G40.909 Epilepsy, unspecified, not intractable, without status epilepticus (principal); F17.210 Nicotine dependence, cigarettes, uncomplicated; I44.0 Atrioventricular block, first degree; R94.31 Abnormal electrocardiogram [ECG] [EKG]
CPT/HCPCS: 36415; 70450; 80053; 80177; 84703; 85025; 93005; 96361; 96374; 96375; 99284; J1953; J2060; J2405; J7030